=== PATIENT | male | born 1975 | race Caucasian/White ===

== ENCOUNTER 2020-10-31 21:25 | Inpatient (IN) ==
[2020-10-31 23:07] LABS: Basophils # (auto) 0.02 K/uL (0-0.2); Basophils % (auto) 0.3 %; Eosinophils # (auto) 0.13 K/uL (0-0.5); Eosinophils % (auto) 1.7 %; Hematocrit (blood only) 41.1 % (42-52); Hemoglobin 13.8 g/dL (14.0-18.0); Immature Granulocytes # (auto) 0.01 K/uL (0.00-0.02); Immature Granulocytes % (auto) 0.1 %; Lymphocytes # (auto) 2.33 K/uL (1.2-3.4); Mean Corpuscular Hemoglobin 29.6 pg (25-34); Mean Corpuscular Hgb Conc 33.6 g/dL (32-36); Mean Platelet Volume 9.3 fL (7.4-10.4); Monocytes # (auto) 0.42 K/uL (0.11-0.59); Monocytes % (auto) 5.4 %; Neutrophils # (auto) 4.86 K/uL (1.4-6.5); Neutrophils % (auto) 62.5 %; Platelet Count 310 K/uL (130-400); RDW Standard Deviation 41.6 fL (36.4-46.3); Red Blood Count 4.67 M/uL (4.7-6.1); White Blood Count 7.77 K/uL (4.8-10.8)
[2020-10-31] MEDS ORDERED: OPTIRAY 320 125ml IV ONE (23:14)
[2020-10-31 23:27] LABS: Alanine Aminotransferase 31 U/L (12-78); Aspartate Aminotransferase 27 U/L (15-37); BUN Creatinine Ratio 21.5 (10-20); Blood Urea Nitrogen 18 mg/dl (7-18); Calcium 9.3 mg/dl (8.5-10.1); Carbon Dioxide 26 mmol/L (21-32); Chloride 106 mmol/L (98-107); Creatinine Clr Calc Pharmacy 116.6 ml/min; Est GFR (African American) 122.6 ml/min; Est GFR (Non-African American) 105.7 ml/min; Glucose 116 mg/dl (70-99); Magnesium 2.5 mg/dl (1.8-2.4); Partial Thromboplastin Ratio 1.2; Partial Thromboplastin Time 31.6 Seconds (21.0-31.0); Potassium 3.8 mmol/L (3.5-5.1); Prothrombin Time 9.7 Seconds (9.0-12.0); Sodium 138 mmol/L (136-145)
[2020-10-31 23:32] LABS: Alkaline Phosphatase 90 U/L (45-117); Bilirubin,Total 0.2 mg/dl (0.2-1); Globulin 4.1 gm/dl (2.5-4.0); Total Protein 8.1 gm/dl (6.4-8.2); Troponin I < 0.015 ng/ml (0-0.045)
--- NOTE | 2020-10-31 23:42 | Emergency Department Note ---
Impression & Plan Cerebellar stroke, Occlusion of left vertebral artery ED Provider Note Provider: Scott Chiu MD DATE OF SERVICE: 10/31/2020 CHIEF COMPLAINT: MRI abnormality, vertigo HISTORY OF PRESENT ILLNESS: Patient is a 45-year-old gentleman developed in the middle of September sudden onset on September 26 of some head pain as well as dizziness. States has been having some issues with intermittent clumsiness of his left hand and at times a little bit of slurring of his speech. Was seen by his PCP as well as in the ER several weeks ago. Initially treated with meclizine and had negative CT scan and basic blood work several weeks ago. Had an outpatient MRI given persistence of symptoms and headaches. States symptoms have been somewhat waxing and waning at times. States he feels like he is staggering some with walking but denies any significant trauma. Denies issues with his right arm or leg. Does not normally take aspirin and has been using Tylenol intermittently for his headaches. Denies acute visual issues but states he has a history of strabismus and his eyes have not been the best over the past several years in any event. Had an MRI today and was called by radiology to come in for further evaluation. Ports and tingling at times in his left fingers but again clumsiness in the left hand. REVIEW OF SYSTEMS: A total of 10 review of systems was obtained and negative except as stated above in the HPI. PAST MEDICAL HISTORY: As noted above MEDICATIONS: Reviewed home medication list does not include antiplatelets or anticoagulants SOCIAL HISTORY: Was in the [facility], lives at home, former smoker PHYSICAL EXAM: GENERAL: alert and oriented in no acute distress on stretcher Head: normocephalic and atraumatic EYES: No injection, discharge or icterus. PERRL, EOMI. NECK: Trachea midline. Supple. ENT: Mucous membranes pink and moist. Pharynx without erythema or exudate. LUNGS: Airway patent. No retractions. Breath sounds clear with good air entry bilaterally. HEART: Regular rate and rhythm. No chest wall tenderness ABDOMEN: Soft and non-tender, without guarding or rebound. No hepatosplenomegaly or masses BACK: No midline tenderness, no SI joint tenderness. No bilateral flank tenderness. SKIN: Acyanotic, warm, dry, without rashes EXTREMITIES: Without swelling, tenderness or deformity NEUROLOGICAL: No aphasia. No facial droop and while he reports some slurred speech do not significantly appreciated on my exam in the room. Tongue is midline. No facial numbness appreciated. Intact strength in the left hand and arm but some left hand [id number] ataxia appreciated. Feels gross touch in the fingers but endorses some paresthesia here. EK bpm normal sinus rhythm. No PVC or PAC. No acute ST segment elevation or depression. QTC 424. CONTINUOUS CARDIAC MONITORING: was ordered and showed a heart rate of 70s to 80s bpm in normal sinus rhythm Patient's laboratory studies and imaging reviewed. Differential includes Infection, dehydration, metabolic abnormality, hypo/hyperglycemia, electrolyte disturbance, anemia, hypoxia, cardiac sources, intracerebral event, toxicologic, neurologic, as well as other pathologies. IMPRESSION/MEDICAL DECISION MAKING: Patient had MRI showing subacute occipital and cerebellar strokes. Seems to correlate with some of his symptoms of waxing waning symptoms are somewhat odd. Does have some left hand ataxia correlates with the cerebellar findings on the MRI. Patient has limited stroke risk factors. No significant family history of early stroke or blood clots reported by him. CTAs of the head and neck were completed to exclude vascular abnormality. Basic labs obtained without significant abnormalities. Given his subacute stroke findings discussed with him further evaluation here at the hospital and neurology consultation. Discussed with telestroke at [place] Dr. Shaikh who recommended aspirin which he was ordered. Patient is in agreement with the plan for further evaluation here. The hospitalist was contacted. DIAGNOSIS: Cerebellar stroke, occlusion left vertebral artery DISPOSITION: Hospitalist will evaluate Patient was agreeable with this plan. Preliminary Findings Only See Final Report For Complete Findings CTA HEAD: No arterial occlusion, high-grade stenosis, aneurysm, or dissection. Radiologist: Shelton Potts MD Study ready at 23:27 and initial results transmitted at 23:36 Preliminary Findings Only See Final Report For Complete Findings CT HEAD: No acute intracranial hemorrhage, hydrocephalus, edema, or mass effect. Radiologist: Shelton Potts MD Study ready at 23:27 and initial results transmitted at 23:33 Preliminary Findings Only See Final Report For Complete Findings CTA NECK: Occluded left vertebral artery with reconstitution of flow in the V3 segment. This is age indeterminate, potentially acute. Differential of dissection versus atheromatous disease as the etiology of the occlusion. Remainder of the cervical vasculature is widely patent. Radiologist: Shelton Potts MD Study ready at 23:31 and initial results transmitted at 23:41 Past Med/Surg History Medical History (Updated 10/31/20 @ 23:52 by Scott Chiu M.D.) Benign paroxysmal positional vertigo Social History (Updated 10/13/20 @ 00:44 by Krystal San MD) Smoking Status: Never smoker Preferred Language: Guatemalan marital status: Current Living Situation: Family current occupational status: employed Feels Safe at Home: Yes Allergies Allergies Allergy/AdvReac Type Severity Reaction Status Date / Time No Known Allergies Allergy Verified 10/31/20 23:03 Home Meds Home Medications Medication Instructions Recorded Confirmed acetaminophen [Tylenol Extra 1,000 mg PO DIRECTED PRN 10/31/20 10/31/20 Strength] meclizine 25 mg PO TID PRN 10/31/20 10/31/20 omeprazole 20 mg PO DAILY PRN 10/31/20 10/31/20 Results & Data (ED) Vital Signs Vital Signs - 24 hr 10/31/20 21:49 10/31/20 23:16 11/01/20 00:09 Temperature 36 C L Temperature Source Temporal Artery Scan Pulse Rate 85 Pulse Rate [Bilateral Apical] 77 83 Respiratory Rate 18 20 20 Blood Pressure 137/98 Blood Pressure [Left Arm] 153/114 H 150/112 H Blood Pressure Mean 111 Blood Pressure Mean [Left Arm] 127 124 Pulse Oximetry 97 98 98 Oxygen Delivery Method Room Air Room Air Room Air Sepsis Recent Fever Within 48 Hours No Sepsis New/Unexplained Change in Mental Status No Sepsis Action Taken by Nursing No Action Required Laboratory Data Result diagrams: 10/31/20 22:55 10/31/20 22:55 Lab Results 10/31/20 10/31/20 10/31/20 Range/Units 22:55 22:55 22:55 WBC 7.77 (4.8-10.8) K/uL RBC 4.67 L (4.7-6.1) M/uL Hgb 13.8 L (14.0-18.0) g/dL Hct 41.1 L (42-52) % MCV 88.0 (80-100) fL MCH 29.6 (25-34) pg MCHC 33.6 (32-36) g/dL RDW Std Deviation 41.6 (36.4-46.3) fL RDW Coeff of [place] 13.0 (11.5-14.5) % Plt Count 310 (130-400) K/uL MPV 9.3 (7.4-10.4) fL Immature Gran % (Auto) 0.1 % Neut % (Auto) 62.5 % Lymph % (Auto) 30.0 % [place] % (Auto) 5.4 % Eos % (Auto) 1.7 % Baso % (Auto) 0.3 % Neut # (Auto) 4.86 (1.4-6.5) K/uL Lymph # (Auto) 2.33 (1.2-3.4) K/uL [place] # (Auto) 0.42 (0.11-0.59) K/uL Eos # (Auto) 0.13 (0-0.5) K/uL Baso # (Auto) 0.02 (0-0.2) K/uL Immature Gran # (Auto) 0.01 (0.00-0.02) K/uL PT 9.7 (9.0-12.0) Seconds INR 1.0 (0.9-1.1) APTT 31.6 H (21.0-31.0) Seconds PTT Ratio 1.2 Sodium 138 (136-145) mmol/L Potassium 3.8 (3.5-5.1) mmol/L Chloride 106 (98-107) mmol/L Carbon Dioxide 26 (21-32) mmol/L Anion Gap 6.0 (3-11) BUN 18 (7-18) mg/dl Creatinine 0.84 (0.6-1.4) mg/dl Est Cr Clr Drug Dosing 116.6 ml/min Est GFR ( Amer) 122.6 ml/min Est GFR (Non-Af Amer) 105.7 ml/min BUN/Creatinine Ratio 21.5 H (10-20) Glucose 116 H (70-99) mg/dl Calcium 9.3 (8.5-10.1) mg/dl Magnesium 2.5 H (1.8-2.4) mg/dl Total Bilirubin 0.2 (0.2-1) mg/dl AST 27 (15-37) U/L ALT 31 (12-78) U/L Alkaline Phosphatase 90 (45-117) U/L Troponin I < 0.015 (0-0.045) ng/ml Total Protein 8.1 (6.4-8.2) gm/dl Albumin 4.0 (3.4-5.0) gm/dl Globulin 4.1 H (2.5-4.0) gm/dl Albumin/Globulin Ratio 1.0 (0.9-2) COVID-19 Eval Order SARS-CoV-2 (PCR) (Negative) 10/31/20 10/31/20 Range/Units 23:10 23:10 WBC (4.8-10.8) K/uL RBC (4.7-6.1) M/uL Hgb (14.0-18.0) g/dL Hct (42-52) % MCV (80-100) fL MCH (25-34) pg MCHC (32-36) g/dL RDW Std Deviation (36.4-46.3) fL RDW Coeff of [place] (11.5-14.5) % Plt Count (130-400) K/uL MPV (7.4-10.4) fL Immature Gran % (Auto) % Neut % (Auto) % Lymph % (Auto) % [place] % (Auto) % Eos % (Auto) % Baso % (Auto) % Neut # (Auto) (1.4-6.5) K/uL Lymph # (Auto) (1.2-3.4) K/uL [place] # (Auto) (0.11-0.59) K/uL Eos # (Auto) (0-0.5) K/uL Baso # (Auto) (0-0.2) K/uL Immature Gran # (Auto) (0.00-0.02) K/uL PT (9.0-12.0) Seconds INR (0.9-1.1) APTT (21.0-31.0) Seconds PTT Ratio Sodium (136-145) mmol/L Potassium (3.5-5.1) mmol/L Chloride (98-107) mmol/L Carbon Dioxide (21-32) mmol/L Anion Gap (3-11) BUN (7-18) mg/dl Creatinine (0.6-1.4) mg/dl Est Cr Clr Drug Dosing ml/min Est GFR ( Amer) ml/min Est GFR (Non-Af Amer) ml/min BUN/Creatinine Ratio (10-20) Glucose (70-99) mg/dl Calcium (8.5-10.1) mg/dl Magnesium (1.8-2.4) mg/dl Total Bilirubin (0.2-1) mg/dl AST (15-37) U/L ALT (12-78) U/L Alkaline Phosphatase (45-117) U/L Troponin I (0-0.045) ng/ml Total Protein (6.4-8.2) gm/dl Albumin (3.4-5.0) gm/dl Globulin (2.5-4.0) gm/dl Albumin/Globulin Ratio (0.9-2) COVID-19 Eval Order Covid19 at [facility] SARS-CoV-2 (PCR) NEGATIVE (Negative) Administered Medications Discontinued Medications Aspirin (Aspirin Chew 324 Mg) 324 mg PO NOW STA Stop: 11/01/20 00:00 Last Admin: 11/01/20 00:10 Dose: 324 mg Documented by: [id number] Ioversol (Optiray 320 125ml) 120 ml IV ONCE ONE Stop: 10/31/20 23:15 Last Admin: 10/31/20 23:15 Dose: 120 ml Documented by: [id number] Discharge Plan Visit Data Chief Complaint: Abnormal Labs/Diagnostic Testing Stated Complaint: HAD MRI EARLIER OF HEAD, NEEDED TO COME BACK ED Provider: Scott Chiu Discharge Problem: Cerebellar stroke, Occlusion of left vertebral artery Patient Disposition: Being Evaluated by Hospitalist Forms Stand Alone Forms: My [facility] [employer] Prescriptions Prescriptions: No Action acetaminophen [Tylenol Extra Strength] 500 mg Tablet 1,000 mg PO DIRECTED PRN (Reason: Pain) RF: 0 meclizine 25 mg tablet 25 mg PO TID PRN (Reason: Dizziness) RF: 0 omeprazole 20 mg Capsule,Delayed Release(Dr/Ec) 20 mg PO DAILY PRN (Reason: Heartburn) RF: 0 Referrals Referrals: Wilfredo Diallo MD [Primary Care Provider] -
[2020-10-31] MEDS ORDERED: ASPIRIN CHEW 324 MG PO STA (23:59)
--- NOTE | 2020-11-01 01:28 | History & Physical Report ---
Date of Service November 01, 2020 Assessment & Plan (1) Cerebellar stroke: Possible embolic source Stroke in the young Anemia, possibly chronic (patient remembers receiving iron supplementation for mild anemia when he was younger) Hyperglycemia rule out DM Past tobacco abuse Medical telemetry Neurochecks Aspirin, statin for secondary stroke prevention TTE for additional stroke work-up Hypercoagulability work-up given stroke in a young patient without classic risk factors for CVD Neurology consult Re: CVA Anemia work-up, transfuse PRBC if hemoglobin less than 8 and or for symptomatic anemia DVT prophylaxis. Lovenox subcu Full code Patient's requesting updates from providers. Ms. Berta Michael, contact #[phone]. Text document was generated using [employer] voice recognition software. It may contain grammatical or spelling errors. Kindly contact undersigned for clarification of any documentation item in question. History of Present Illness Chief Complaint: Abnormal MRI Primary Care Provider: Wilfredo Diallo MD History obtained from patient and records. Medical history significant for past tobacco abuse. 6 months history of intermittent dull posterior headache symptoms. Last month, patient noted vertigo symptoms described as spinning as if his being pulled on the left side. Attack coincided a few days after receiving second dose of COVID-19 vaccine ([id number]). No fever, no chills, no chest pain no S OB. Patient seen at PCPs office. Symptoms attributed to possible BPPV. Patient prescribed meclizine. Patient consulted ER 3 weeks ago due to worsening vertigo symptoms associated with left arm tingling. CT head did not show any acute intracranial abnormality. Patient symptoms attributed to BPPV. Patient prescribed prednisone course and meclizine. Patient PCP requested for a Brain MRI given persistent symptoms associated with some speech trouble on office follow-up 2 weeks ago. No alarming visual changes as per patient. Abnormal outpatient brain MRI done at [facility] yesterday. 1. There are foci of patchy signal abnormality identified in the superior left cerebellar hemisphere as above with associated abnormal postcontrast enhancement. This likely represents subacute ischemia. A repeat MRI of the brain in several weeks time is recommended for reassessment. Based on the locations, CT angiogram of the head and neck is recommended to assess the posterior circulation. 2. There are 2 additional tiny foci of restricted diffusion within the left posterior occipital cortex and the left cerebellar hemisphere which likely represent tiny acute to subacute infarcts. 3. No additional foci of acute ischemia are identified. 4. There is no evidence of hemorrhage or mass effect. Patient requested by providers to go to [facility] ER for evaluation. Patient given Aspirin at the ER following ED provider conversation with [facility] stroke neurologist. Medical History as above Surgical History : None Family History : COPD, seizure disorder, hypertension, trigeminal neuralgia Personal/Social history : Past tobacco abuse, no EtOH intake, [employer] employee Allergies Allergy/AdvReac Type Severity Reaction Status Date / Time No Known Allergies Allergy Verified 10/31/20 23:03 Home Medications Medication Instructions Recorded Confirmed Type acetaminophen [Tylenol Extra 1,000 mg PO DIRECTED PRN 10/31/20 10/31/20 History Strength] meclizine 25 mg PO TID PRN 10/31/20 10/31/20 History omeprazole 20 mg PO DAILY PRN 10/31/20 10/31/20 History Past Med/Surg History Medical History (Updated 10/31/20 @ 23:52 by Scott Chiu M.D.) Benign paroxysmal positional vertigo Social History (Updated 10/13/20 @ 00:44 by Krystal San MD) Smoking Status: Former smoker Smoking End Date: 2010; Hx Alcohol Use: Yes Alcohol type: beer Hx Substance Use: No Preferred Language: Wolof Communication Ability: Effective Fitness Sales Consultant Required: No Beliefs That Will Affect Care: None marital status: Current Living Situation: Spouse Current Living Situation Comment: spouse and children current occupational status: employed Other Information That Helps Us Care for You: No Feels Safe at Home: Yes Safety Concerns: Feels Safe At This Time Assistive Devices: Glasses Review of Systems Review of Systems: As per HPI, all 10 systems reviewed, all other ROS negative Physical Exam Physical Exam: GENERAL: Comfortable, pleasant, no respiratory distress SKIN: Normal color, warm HEENT: Bespectacled, Let[place] palpebral conjunctivae, no ptosis, moist buccal mucosa NECK : Supple, no tenderness CHEST : CTA, no tenderness HEART : RRR, no obvious murmurs ABDOMEN: No distention, nontender EXTREMITIES : No LE swelling/tenderness, no other conspicuous deformities noted NEUROLOGIC : Coherent, no facial asymmetry, dysmetria left, no other gross focality Results & Data Results & Data ([facility]) Vital Signs (Past 12 Hours) Vital Signs Temp Pulse Pulse Resp BP BP Pulse Ox 11/01/20 01:16 68 20 129/97 98 11/01/20 00:09 83 20 150/112 H 98 10/31/20 23:16 77 20 153/114 H 98 10/31/20 21:49 36 C L 85 18 137/98 97 Laboratory Results Laboratory Results WBC 7.77 K/uL (4.8-10.8) 10/31/20 22:55 RBC 4.67 M/uL (4.7-6.1) L 10/31/20 22:55 Hgb 13.8 g/dL (14.0-18.0) L 10/31/20 22:55 Hct 41.1 % (42-52) L 10/31/20 22:55 MCV 88.0 fL (80-100) 10/31/20 22:55 MCH 29.6 pg (25-34) 10/31/20 22:55 MCHC 33.6 g/dL (32-36) 10/31/20 22:55 RDW Std Deviation 41.6 fL (36.4-46.3) 10/31/20 22:55 RDW Coeff of [place] 13.0 % (11.5-14.5) 10/31/20 22:55 Plt Count 310 K/uL (130-400) 10/31/20 22:55 MPV 9.3 fL (7.4-10.4) 10/31/20 22:55 Immature Gran % (Auto) 0.1 % 10/31/20 22:55 Neut % (Auto) 62.5 % 10/31/20 22:55 Lymph % (Auto) 30.0 % 10/31/20 22:55 [place] % (Auto) 5.4 % 10/31/20 22:55 Eos % (Auto) 1.7 % 10/31/20 22:55 Baso % (Auto) 0.3 % 10/31/20 22:55 Neut # (Auto) 4.86 K/uL (1.4-6.5) 10/31/20 22:55 Lymph # (Auto) 2.33 K/uL (1.2-3.4) 10/31/20 22:55 [place] # (Auto) 0.42 K/uL (0.11-0.59) 10/31/20 22:55 Eos # (Auto) 0.13 K/uL (0-0.5) 10/31/20 22:55 Baso # (Auto) 0.02 K/uL (0-0.2) 10/31/20 22:55 Immature Gran # (Auto) 0.01 K/uL (0.00-0.02) 10/31/20 22:55 PT 9.7 Seconds (9.0-12.0) 10/31/20 22:55 INR 1.0 (0.9-1.1) 10/31/20 22:55 APTT 31.6 Seconds (21.0-31.0) H 10/31/20 22:55 PTT Ratio 1.2 10/31/20 22:55 Sodium 138 mmol/L (136-145) 10/31/20 22:55 Potassium 3.8 mmol/L (3.5-5.1) 10/31/20 22:55 Chloride 106 mmol/L (98-107) 10/31/20 22:55 Carbon Dioxide 26 mmol/L (21-32) 10/31/20 22:55 Anion Gap 6.0 (3-11) 10/31/20 22:55 BUN 18 mg/dl (7-18) 10/31/20 22:55 Creatinine 0.84 mg/dl (0.6-1.4) 10/31/20 22:55 Est Cr Clr Drug Dosing 116.6 ml/min 10/31/20 22:55 Est GFR ( Amer) 122.6 ml/min 10/31/20 22:55 Est GFR (Non-Af Amer) 105.7 ml/min 10/31/20 22:55 BUN/Creatinine Ratio 21.5 (10-20) H 10/31/20 22:55 Glucose 116 mg/dl (70-99) H 10/31/20 22:55 Calcium 9.3 mg/dl (8.5-10.1) 10/31/20 22:55 Magnesium 2.5 mg/dl (1.8-2.4) H 10/31/20 22:55 Total Bilirubin 0.2 mg/dl (0.2-1) 10/31/20 22:55 AST 27 U/L (15-37) 10/31/20 22:55 ALT 31 U/L (12-78) 10/31/20 22:55 Alkaline Phosphatase 90 U/L (45-117) 10/31/20 22:55 Troponin I < 0.015 ng/ml (0-0.045) 10/31/20 22:55 Total Protein 8.1 gm/dl (6.4-8.2) 10/31/20 22:55 Albumin 4.0 gm/dl (3.4-5.0) 10/31/20 22:55 Globulin 4.1 gm/dl (2.5-4.0) H 10/31/20 22:55 Albumin/Globulin Ratio 1.0 (0.9-2) 10/31/20 22:55 COVID-19 Eval Order Covid19 at [facility] 10/31/20 23:10 SARS-CoV-2 (PCR) NEGATIVE (Negative) 10/31/20 23:[address] head initial read: No acute intracranial hemorrhage, hydrocephalus, edema or mass-effect. CTA head initial read: No arterial occlusion, high-grade stenosis, aneurysm or dissection. CTA neck initial read: Occluded left vertebral artery with reconstitution of flow in the V3 segment. Age-indeterminate potentially acute. Differential of dissection versus atheromatous disease is etiology for occlusion. Remainder of cervical vasculature is widely patent. EKG as per my interpretation rate 75, NSR, normal axis, no ischemia
[2020-11-01] MEDS ORDERED: LORazepam 0.25 MG/0.5 ML VIAL IV PRN (02:39)
[2020-11-01] MEDS ORDERED: PROMETHAZINE HCL 12.5 MG in SODIUM CHLORIDE 0.9% 50 ML IV PRN (02:39)
[2020-11-01] MEDS ORDERED: PHARMACIST DISCHARGE MED REC CONSULT PRN (02:39)
[2020-11-01] MEDS ORDERED: NSS + 20MEQ KCL 20 MEQ/1,000 ML BAG IV ONE (02:39)
[2020-11-01] MEDS ORDERED: PANTOprazole 40 MG TAB PO PRN (02:39)
[2020-11-01 06:23] LABS: Basophils # (auto) 0.02 K/uL (0-0.2); Basophils % (auto) 0.3 %; Eosinophils # (auto) 0.17 K/uL (0-0.5); Eosinophils % (auto) 2.4 %; Hematocrit (blood only) 39.8 % (42-52); Hemoglobin 13.1 g/dL (14.0-18.0); Mean Corpuscular Hgb Conc 32.9 g/dL (32-36); Mean Corpuscular Volume 88.2 fL (80-100); Mean Platelet Volume 9.4 fL (7.4-10.4); Monocytes # (auto) 0.51 K/uL (0.11-0.59); Monocytes % (auto) 7.2 %; Neutrophils # (auto) 3.71 K/uL (1.4-6.5); Neutrophils % (auto) 52.1 %; Platelet Count 294 K/uL (130-400); RDW Standard Deviation 41.8 fL (36.4-46.3); Red Blood Count 4.51 M/uL (4.7-6.1); White Blood Count 7.11 K/uL (4.8-10.8)
[2020-11-01 06:28] LABS: Estimated Average Glucose 114 mg/dl; Hemoglobin A1C 5.6 % (4.5-5.6)
[2020-11-01 06:54] LABS: BUN Creatinine Ratio 19.9 (10-20); Calcium 9.3 mg/dl (8.5-10.1); Creatinine Clr Calc Pharmacy 116.9 ml/min; Est GFR (African American) 122.6 ml/min; Est GFR (Non-African American) 105.7 ml/min; Potassium 3.8 mmol/L (3.5-5.1)
--- NOTE | 2020-11-01 08:08 | CT Scan Report ---
CT angio head w con CLINICAL HISTORY: Stroke Like Symptoms TECHNIQUE: CT angiography of the head was performed in a dynamic helical fashion during intravenous a dministration of 120 cc of Optiray. MIP imaging was performed. A dose lowering technique was utilized adhering to the principles of ALARA. CT DOSE: COMPARISON STUDY: No previous studies for comparison. FINDINGS: There are no lesion suspicious for aneurysm. There are no major intracranial branch occlusi ons. The dural venous sinuses appear patent. IMPRESSION: 1. Unremarkable CT angiography of the brain. ACT 112: Negative or not required by law. Electronically signed by: Nathan Taveras M.D. 11/01/2020 8:07 AM
[2020-11-01 08:30] LABS: Ferritin 173.3 ng/ml (8-388)
[2020-11-01 08:31] LABS: Reticulocyte % 0.8 % (0.5-2.0); Reticulocytes # 0.03 10^6/uL (0.02-0.10)
[2020-11-01] MEDS: ENOXAPARIN INJ 40 MG/0.4 ML SYR SQ SCH (08:53)
[2020-11-01] MEDS: ATORVASTATIN 40 MG TAB PO SCH (08:53)
[2020-11-01 09:00] LABS: Folate (Folic Acid) 18.7 ng/ml (>5.38)
--- NOTE | 2020-11-01 09:34 | CT Scan Report ---
CT head/brain wo con CLINICAL HISTORY: Stroke Like Symptoms COMPARISON STUDY: October 11, 2020 TECHNIQUE: Axial CT of the brain is performed from the vertex to the skull base. IV contrast was not administered for this examination. A dose lowering technique was utilized adhering to the principles of ALARA. CT DOSE: FINDINGS: No intra or extra-axial mass lesions are visualized. There is no CT evidence of acute cortical infarc tion. There is no evidence of midline shift. There is no acute hemorrhage. No acute depressed calvar ial fractures are visualized. There are patchy white matter hypodensities likely on a small vessel basis. There is no evidence of pathologic ventricular dilatation. There is no evidence of acute sinusitis IMPRESSION: No acute intracranial hemorrhage, no midline shift or space occupying lesions. ACT 112: Negative or not required by law. The above report was generated using voice recognition software. It may contain grammatical, syntax o r spelling errors. Electronically signed by: Jia Bailey DO 11/01/2020 9:32 AM
--- NOTE | 2020-11-01 10:23 | CT Scan Report ---
CT angio neck with con CLINICAL HISTORY: Stroke Like Symptoms COMPARISON STUDY: No previous studies for comparison. TECHNIQUE: CT angiography was performed from the aortic arch to the skull base. MIP imaging was perfo rmed. The patient was scanned in a dynamic helical fashion during intravenous administration of 120 c c of Optiray. A dose lowering technique was utilized adhering to the principles of ALARA. CT DOSE: 1136.23 mGy.cm Technique: CT angiogram of the carotid and vertebral arteries was obtained using intravenous contrast and 3-D reconstruction. NASCET criteria was utilized. Findings: The right carotid revealed no evidence of aneurysm and no evidence of dissection. There is no evidenc e of hemodynamic significant stenosis. The left carotid revealed no evidence of hemodynamic significant stenosis. There is no evidence of an eurysm. There is no evidence of dissection. Right predominant vertebral circulation. Right vertebral artery is patent. No evidence of blood flow is seen within proximal artery of the left vertebral artery. Faint reconsti tuted flow is seen within distal portion of V3 and V4 segments which is small in caliber. IMPRESSION: 1. Occlusion of the most of the proximal and mid aspect of the left vertebral artery with slightly r econstituted flow within distal V3 and V4 segments and might represent acute process. 2. Bilateral carotid and right vertebral artery are patent. ACT 112: Negative or not required by law. The above report was generated using voice recognition software. It may contain grammatical, syntax o r spelling errors. Electronically signed by: Jia Bailey DO 11/01/2020 10:21 AM
[2020-11-01] MEDS: ACETAMINOPHEN 325 MG TAB PO PRN ×2 (14:58→20:24)
--- NOTE | 2020-11-01 15:16 | Electrocardiogram Report ---
Test Reason : Blood Pressure : / mmHG Vent. Rate : 074 BPM Atrial Rate : 074 BPM P-R Int : 138 ms QRS Dur : 078 ms QT Int : 382 ms P-R-T Axes : 051 025 025 degrees QTc Int : 424 ms Poor data quality, interpretation may be adversely affected Normal sinus rhythm Normal ECG When compared with ECG of 11-OCT-2020 14:17, No significant change was found Confirmed by Boy Mariscal ([id number]) on 11/01/2020 3:16:43 PM Referred By: Wilfredo Diallo Confirmed By:Boy Mariscal
--- NOTE | 2020-11-01 17:43 | Consultation Report ---
DATE OF CONSULTATION: 11/01/2020 REASON FOR CONSULTATION: Posterior circulation stroke. HISTORY OF PRESENT ILLNESS: The patient is a 45-year-old right-handed male with a history of reflux. On this background, approximately 09/24, he received the second of his two COVID vaccinations, Pfiz er. He felt mildly fatigued, but within a day or so, he suddenly felt pulled to the left. The sympt om was accompanied by vomiting, no rafael vertigo and was fairly continuous for 24 hours. His symptom s persisted for several days, about 5 days, and he felt increasingly pushed to the left. Thereafter, he felt near to normal, but with some persistence of symptoms. This was treated as if it was BPPV a nd the patient was given Antivert. About 11 days into the onset of these persistent symptoms, the chari estes noted sudden tingling from the left wrist down. That has persisted. That prompted him to go t o the Emergency Room where a CT of the head noncontrast was read as normal and he was given prednison e. Approximately 10/13, he developed dysarthria, which was mild and persistent. He sought the medic al evaluation of primary care who ordered an MRI of the brain, which was performed last evening. In the interim, he has residual mild difficulty with speech, veering to the left and tingling in his lef t hand and incoordination of his left hand. None of his symptoms have been new for about 10 or so da ys. This has also been accompanied by some occipital headache, perhaps as long as several months, te nding to be right occipital and right hemicranial; however, the headache has been left-sided as well more recently; generally it is nonthrobbing, but can be throbbing as well. The patient has no history of migraine. He has not had any head and neck injury, chiropractic manipu lation of the neck or sudden turning of his head. He has not had any chest pain, palpitations or ilia rtness of breath. He has not otherwise been ill. None of his medicines are new or changed in dose. He took an [id number]-[id number] medication for reflux, but otherwise took no medications. He has no history of NC, stroke, PE, DVT, cancer, rheumatic fever or murmur. His MRI was performed l ast evening at this facility. I reviewed the images and it reveals foci of patchy signal abnormality identified in the left superior cerebellar hemisphere as above with associated abnormal postcontrast enhancement, likely representing subacute ischemia. Two additional tiny foci of restricted diffusio n in the left posterior occipital cortex and left cerebellar hemisphere, likely representing tiny acu te to subacute infarctions. No additional acute ischemia is identified. No evidence of hemorrhage o r mass effect. CTA of the head and neck shows an unremarkable CTA of the brain, but evidence of occl usion of the most proximal and mid aspect of the left vertebral artery with slight reconstructed flow within the distal V3 and V4 and "might represent an acute process." Bilateral carotid and right mirna tebral artery are patent. The patient's electrocardiogram revealed sinus rhythm, normal EKG. Echoca rdiogram, left ventricular systolic function is normal, EF 55%-60%, trace mitral regurgitation. Puls ed wave TDI of the anterior and posterior mitral annulus demonstrates normal LV relaxation. Injectio n of contrast documented no intraatrial shunt. There is borderline concentric left ventricular hyper trophy. The atria are of normal size. Great vessels are unremarkable. White count 7.7, H and H 13. 8/41.1, platelet count 310. PT 9.7, PTT 31.6 with the upper limit of normal being 31. Hypercoagulab le state workup pending. Blood sugar, nonfasting 116. Total cholesterol 211, LDL 140, HDL 49. COVID -19 negative. PAST MEDICAL HISTORY: As above. PAST SURGICAL HISTORY: Strabismus surgery. SOCIAL HISTORY: Former smoker, does not drink alcohol, is retired from the and works at [employer]. FAMILY HISTORY: Mother, hypertension, reflux. Father, COPD, coronary artery disease. Siblings and c amanda are well. Maternal grandmother had trigeminal neuralgia. No family history of early vascula r disease, stroke, NC, or DVT. ALLERGIES: No allergies are noted. HOME MEDICATIONS: Tylenol, meclizine and omeprazole. PHYSICAL EXAMINATION: VITAL SIGNS: Current blood pressure 136/85, 65, 36.7. NEUROLOGIC: The patient is awake and alert. Speech is mildly dysarthric. There is no aphasia. Sergio guage is unremarkable. There are no carotid or vertebral bruits. Radial pulses are palpably symmetr ic. No heart murmur is appreciable. Heart is regular rate and rhythm. No temporal tenderness or oc cipital tenderness is noted. Pupils are equal, round and reactive to light. Optic nerves are grossl y normal. There are normal visual garcia, motility reveals nystagmus on left lateral gaze. Normal f acial symmetry. Tongue is midline. Uvula elevates symmetrically. Motor: 5/5. No drift. Minimall y reduced left rapid alternating movements. Qtcxap-my-kywt is marginally dystaxic on the left and th ere is mild dysdiadochokinesia in the left upper extremity. Qmsm-ia-zrel appears unremarkable. Sens ation is intact to light touch, temperature, and vibration. Reflexes are symmetric. Toes are downgo ing. Gait is unremarkable. The patient cannot tandem, and Romberg is positive. 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 PLAN: Dual antiplatelet therapy with aspirin and Plavix for 21 days and then aspirin monotherapy. B egin a statin, goal LDL 70 or less. Repeat MRI of the brain in 1 month to evaluate for resolving enh ancement in the left medial cerebellar hemisphere. Hypercoagulable state workup pending. Check sed rate, AUDREY. Although this is not likely cardioemboli c, recommend a Zio patch. Activity bustillo, I would avoid forced flexion and extension of the head and neck. The patient should a void chiropractic manipulation of the neck. For the patient's headache, he can start with riboflavin 400 mg once a day and magnesium 400 mg once a day. If this is ineffective, we could start him on low-dose gabapentin 100 mg once a day and then increasing to b.i.d. after about 5 days. We spoke about potential side effects in advance of its use . Recommend repeat CTA of head and neck in 3-6 months. The patient should see me in followup post-d ischarge. He will need outpatient physical therapy. Job ID: [id number]
--- NOTE | 2020-11-01 18:10 | Communication Note ---
Date of Service: November 01, 2020 Patient was seen and examined Lying in bed with no distress Denies any chest pain, palpitation, dizziness, shortness of breath. Exam General- No acute distress Head- atraumatic Eyes- PERRL, EOMI, +nystagmus ENT- oropharynx clear Neck- supple, no JVD Lungs- clear to auscultation Heart- regular rhythm; no murmur Abdomen- normal bowel sounds, soft, nontender Extremities- no calf tenderness Neuro- alert, oriented x 3; PERRL, EOMI; no facial palsy; no dysarthria Skin- warm & dry A/P Acute subacute infarct Outpatient MRI showed foci of patchy signal abnormality identified in the superior left cerebellar hemisphere as above with associated abnormal postcontrast enhancement. This likely represents subacute ischemia. 2 additional tiny foci of restricted diffusion within the left posterior occipital cortex and the left cerebellar hemisphere which likely represent tiny acute to subacute infarcts. Echo showed left ventricular systolic function is normal. Ejection fraction 55 to 60%. No evidence of interatrial shunt Neuro on board recommended dual antiplatelet therapy with Plavix and aspirin for 21 days, then aspirin alone. Continue statin therapy. Zio patch outpatient to be arranged. Hypercoagulable state workup pending. will need a repeat MRI of the brain in 1 month to evaluate for resolving enhancement in the left medial cerebellar hemisphere. Continue PT/OT eval Continue monitor in telemetry Follow up with neurology outpatient Occlusion of the left vertebral artery. Patient was advised to avoid chiropractic manipulation of the neck Will need a repeat CTA of head and neck in 3-6 months. Headache Annual recommended riboflavin 400 mg once a day and magnesium 400 mg daily If no relief consider to start on gabapentin 100 mg twice Disposition Possible discharge tomorrow
[2020-11-01] MEDS: CLOPIDOGREL BISULFATE 75 MG TAB PO SCH (18:14)
[2020-11-02 07:13] LABS: Hematocrit (blood only) 40.3 % (42-52); Hemoglobin 13.4 g/dL (14.0-18.0); Mean Corpuscular Hemoglobin 29.6 pg (25-34); Mean Corpuscular Hgb Conc 33.3 g/dL (32-36); Mean Platelet Volume 9.1 fL (7.4-10.4); Platelet Count 271 K/uL (130-400); RDW Coefficient of Variation 12.9 % (11.5-14.5); RDW Standard Deviation 42.1 fL (36.4-46.3); Red Blood Count 4.53 M/uL (4.7-6.1); White Blood Count 5.96 K/uL (4.8-10.8)
[2020-11-02 07:46] LABS: BUN Creatinine Ratio 18.2 (10-20); Calcium 9.3 mg/dl (8.5-10.1); Creatinine Clr Calc Pharmacy 119.6 ml/min; Est GFR (African American) 123.8 ml/min; Est GFR (Non-African American) 106.8 ml/min; Magnesium 2.4 mg/dl (1.8-2.4); Phosphorus 3.7 mg/dl (2.5-4.9); Potassium 4.3 mmol/L (3.5-5.1)
[2020-11-02] MEDS: CLOPIDOGREL BISULFATE 75 MG TAB PO SCH (08:01)
[2020-11-02] MEDS: ATORVASTATIN 40 MG TAB PO SCH (08:01)
[2020-11-02] MEDS: ENOXAPARIN INJ 40 MG/0.4 ML SYR SQ SCH (08:01)
[2020-11-02] MEDS ORDERED: ASPIRIN 81 MG ECTAB PO SCH (09:00)
[2020-11-02] MEDS ORDERED: MAGNESIUM OXIDE 400 MG TAB PO SCH (09:00)
--- NOTE | 2020-11-02 09:26 | Hospitalist Progress Note ---
Date of Service November 02, 2020 Assessment & Plan (1) Cerebellar stroke: Possible embolic source Stroke in the young Acute subacute infarct Outpatient MRI showed foci of patchy signal abnormality identified in the superior left cerebellar hemisphere as above with associated abnormal postcont rast enhancement. This likely represents subacute ischemia. 2 additional tiny foci of restricted diffusion within the left posterior occipital cortex and the left cerebellar hemisphere which likely represent tiny acute to subacute infarcts. Echo showed left ventricular systolic function is normal. Ejection fraction 55 to 60%. No evidence of interatrial shunt Neurology consulted - recommended dual antiplatelet therapy with Plavix and aspirin for 21 days, then aspirin alone. Continue statin therapy. Zio patch outpatient to be arranged. Hypercoagulable state workup pending. will need a repeat MRI of the brain in 1 month to evaluate for resolving enhancement in the left medial cerebellar hemisphere. Follow up with neurology PT/OT eval -recommend outpatient PT, Rx for outpatient PT eval and treat provided Continue monitor in telemetry - sinus rhythm on tele Follow up with neurology outpatient Occlusion of the left vertebral artery. Patient was advised to avoid forceful extension, flexion of the neck, chiropractic manipulation of the neck Will need a repeat CTA of head and neck in 3-6 months. Headache Neurology recommended riboflavin 400 mg once a day and magnesium 400 mg daily If no relief consider to start on gabapentin 100 mg daily, then twice a day about 5 days later Disposition Plan to discharge home Full code Admission and Anticipated Discharge Date Admission Date: November 01, 2020 Subjective Patient seen in follow-up of CVA, cerebellar stroke, occlusion of left vertebral artery No acute events overnight Currently patient is sitting up in bed, in no acute distress No fevers, chills, chest pain, shortness of breath Telemetry reviewed by me, patient in sinus rhythm Patient seen by neurology yesterday, recommendations given Rx for outpatient PT evaluation treatment provided for the patient Discussed medications and follow-ups patient in agreement with the plan Review of Systems Review of Systems: All systems reviewed & are unremarkable except as noted in HPI & below Constitutional: no fever and no chills Respiratory: no cough and no dyspnea Cardiovascular: no chest pain and no palpitations Gastrointestinal: no abdominal pain and no vomiting Physical Exam Physical Exam: General- WD, WN, No acute distress Head- atraumatic Eyes- PERRL, EOMI ENT- oropharynx clear Neck- supple, no JVD Lungs- clear to auscultation b/l Heart- regular rhythm; no murmur Abdomen- normal bowel sounds, soft, nontender Extremities- no calf tenderness, moves extremities Neuro- alert, oriented x 3; PERRL, EOMI; no facial palsy; no dysarthria Skin- warm & dry Results & Data Results & Data ([facility]) Vital Signs (Past 12 Hours) Vital Signs Temp Pulse Pulse Resp BP Pulse Ox 11/02/20 07:20 36.6 C 66 17 137/92 97 11/02/20 04:05 36.6 C 56 L 16 134/80 98 11/02/20 00:03 36.6 C 57 L 18 129/83 97 11/01/20 23:34 66 Laboratory Results 11/02/20 11/02/20 11/02/20 Range/Units 06:49 06:49 06:49 WBC 5.96 (4.8-10.8) K/uL RBC 4.53 L (4.7-6.1) M/uL Hgb 13.4 L (14.0-18.0) g/dL Hct 40.3 L (42-52) % MCV 89.0 (80-100) fL MCH 29.6 (25-34) pg MCHC 33.3 (32-36) g/dL RDW Std Deviation 42.1 (36.4-46.3) fL RDW Coeff of [place] 12.9 (11.5-14.5) % Plt Count 271 (130-400) K/uL MPV 9.1 (7.4-10.4) fL ESR (0-15) mm/hr Sodium 137 (136-145) mmol/L Potassium 4.3 (3.5-5.1) mmol/L Chloride 107 (98-107) mmol/L Carbon Dioxide 28 (21-32) mmol/L Anion Gap 2.0 L (3-11) BUN 15 (7-18) mg/dl Creatinine 0.82 (0.6-1.4) mg/dl Est Cr Clr Drug Dosing 119.6 ml/min Est GFR ( Amer) 123.8 ml/min Est GFR (Non-Af Amer) 106.8 ml/min BUN/Creatinine Ratio 18.2 (10-20) Glucose 83 (70-99) mg/dl Calcium 9.3 (8.5-10.1) mg/dl Phosphorus 3.7 (2.5-4.9) mg/dl Magnesium 2.4 (1.8-2.4) mg/dl AUDREY Screen Pending 11/01/20 Range/Units 17:08 WBC (4.8-10.8) K/uL RBC (4.7-6.1) M/uL Hgb (14.0-18.0) g/dL Hct (42-52) % MCV (80-100) fL MCH (25-34) pg MCHC (32-36) g/dL RDW Std Deviation (36.4-46.3) fL RDW Coeff of [place] (11.5-14.5) % Plt Count (130-400) K/uL MPV (7.4-10.4) fL ESR 31 H (0-15) mm/hr Sodium (136-145) mmol/L Potassium (3.5-5.1) mmol/L Chloride (98-107) mmol/L Carbon Dioxide (21-32) mmol/L Anion Gap (3-11) BUN (7-18) mg/dl Creatinine (0.6-1.4) mg/dl Est Cr Clr Drug Dosing ml/min Est GFR ( Amer) ml/min Est GFR (Non-Af Amer) ml/min BUN/Creatinine Ratio (10-20) Glucose (70-99) mg/dl Calcium (8.5-10.1) mg/dl Phosphorus (2.5-4.9) mg/dl Magnesium (1.8-2.4) mg/dl AUDREY Screen Medications Administered Current Inpatient Medications Acetaminophen (Acetaminophen 325 Mg Tab) 650 mg PO Q4H PRN PRN Reason: Pain or Fever Stop: 12/01/20 02:38 Last Admin: 11/01/20 20:24 Dose: 650 mg Documented by: Aspirin (Aspirin 81 Mg Ectab) 81 mg PO [facility] Stop: 12/02/20 08:59 Last Admin: 11/02/20 08:01 Dose: 81 mg Documented by: Atorvastatin Calcium (Atorvastatin 40 Mg Tab) 40 mg PO [facility] Stop: 12/01/20 08:59 Last Admin: 11/02/20 08:01 Dose: 40 mg Documented by: Clopidogrel Bisulfate (Clopidogrel Bisulfate 75 Mg Tab) 75 mg PO [facility] Stop: 12/01/20 17:29 Last Admin: 11/02/20 08:01 Dose: 75 mg Documented by: Enoxaparin Sodium (Enoxaparin Inj 40 Mg/0.4 Ml Syr) 40 mg SQ [facility] Stop: 12/01/20 08:59 Last Admin: 11/02/20 08:01 Dose: 40 mg Documented by: Promethazine HCl 12.5 mg/ (Sodium Chloride) 50.5 mls @ 202 mls/hr IV Q6H PRN PRN Reason: Nausea And Vomiting Stop: 12/01/20 02:38 Lorazepam (Ativan) 0.25 mg in 0.5 mls @ 0.5 mls/min IV Q4H PRN PRN Reason: Anxiety Stop: 12/01/20 02:38 Magnesium Oxide (Magnesium Oxide 400 Mg Tab) 400 mg PO [facility] Stop: 12/02/20 08:59 Last Admin: 11/02/20 08:00 Dose: 400 mg Documented by: Miscellaneous Information (Pharmacist Discharge Med Rec Consult) 1 ea N/A UD PRN PRN Reason: Consult Stop: 12/01/20 02:38 Pantoprazole Sodium (Pantoprazole 40 Mg Tab) 40 mg PO DAILY PRN PRN Reason: Heartburn Last Admin: 11/02/20 08:01 Dose: 40 mg Documented by:
[2020-11-02] MEDS ORDERED: STROKE PATIENT DISCHARGE STA (09:34)
--- NOTE | 2020-11-02 09:41 | Discharge Summary ---
Date of Service November 02, 2020 Admission HPI Per Admitting Provider History obtained from patient and records. Medical history significant for past tobacco abuse. 6 months history of intermittent dull posterior headache symptoms. Last month, patient noted vertigo symptoms described as spinning as if his being pulled on the left side. Attack coincided a few days after receiving second dose of COVID-19 vaccine ([facility]). No fever, no chills, no chest pain no S OB. Patient seen at PCPs office. Symptoms attributed to possible BPPV. Patient prescribed meclizine. Patient consulted ER 3 weeks ago due to worsening vertigo symptoms associated with left arm tingling. CT head did not show any acute intracranial abnormality. Patient symptoms attributed to BPPV. Patient prescribed prednisone course and meclizine. Patient PCP requested for a Brain MRI given persistent symptoms associated with some speech trouble on office follow-up 2 weeks ago. No alarming visual changes as per patient. Abnormal outpatient brain MRI done at [facility] yesterday. 1. There are foci of patchy signal abnormality identified in the superior left cerebellar hemisphere as above with associated abnormal postcontrast enhancement. This likely represents subacute ischemia. A repeat MRI of the brain in several weeks time is recommended for reassessment. Based on the locations, CT angiogram of the head and neck is recommended to assess the posterior circulation. 2. There are 2 additional tiny foci of restricted diffusion within the left posterior occipital cortex and the left cerebellar hemisphere which likely represent tiny acute to subacute infarcts. 3. No additional foci of acute ischemia are identified. 4. There is no evidence of hemorrhage or mass effect. Patient requested by providers to go to [facility] ER for evaluation. Patient given Aspirin at the ER following ED provider conversation with [facility] stroke neurologist. Medical History as above Surgical History : None Family History : COPD, seizure disorder, hypertension, trigeminal neuralgia Personal/Social history : Past tobacco abuse, no EtOH intake, [employer] employee Admission Exam Per Admitting Provider GENERAL: Comfortable, pleasant, no respiratory distress SKIN: Normal color, warm HEENT: Bespectacled, [place] palpebral conjunctivae, no ptosis, moist buccal mucosa NECK : Supple, no tenderness CHEST : CTA, no tenderness HEART : RRR, no obvious murmurs ABDOMEN: No distention, nontender EXTREMITIES : No LE swelling/tenderness, no other conspicuous deformities noted NEUROLOGIC : Coherent, no facial asymmetry, dysmetria left, no other gross focality Principal Diagnosis CVA -cerebellar stroke, vertebral artery occlusion Ambulatory dysfunction Discharge Exam General- WD, WN, No acute distress Head- atraumatic Eyes- PERRL, EOMI ENT- oropharynx clear Neck- supple, no JVD Lungs- clear to auscultation b/l Heart- regular rhythm; no murmur Abdomen- normal bowel sounds, soft, nontender Extremities- no calf tenderness, moves extremities Neuro- alert, oriented x 3; PERRL, EOMI; no facial palsy; no dysarthria Skin- warm & dry Discharge Data Allergies Allergy/AdvReac Type Severity Reaction Status Date / Time No Known Allergies Allergy Verified 10/31/20 23:03 Consultations 10/31/20 23:59 ED Decision to Admit Stat 11/01/20 02:39 Consult Neurology Routine Consult Neurology Routine Ordered Studies 10/31/20 22:46 CT angio head w con Stat IMPRESSION: 1. Unremarkable CT angiography of the brain. CT angio neck with con Stat IMPRESSION: 1. Occlusion of the most of the proximal and mid aspect of the left vertebral artery with slightly reconstituted flow within distal V3 and V4 segments and might represent acute process. 2. Bilateral carotid and right vertebral artery are patent. CT head/brain wo con Stat IMPRESSION: No acute intracranial hemorrhage, no midline shift or space occupying lesions. Hospital Course (1) Cerebellar stroke: Possible embolic source Stroke in the young Acute subacute infarct Outpatient MRI showed foci of patchy signal abnormality identified in the superior left cerebellar hemisphere as above with associated abnormal postcontrast enhancement. This likely represents subacute ischemia. 2 additional tiny foci of restricted diffusion within the left posterior occipital cortex and the left cerebellar hemisphere which likely represent tiny acute to subacute infarcts. Echo showed left ventricular systolic function is normal. Ejection fraction 55 to 60%. No evidence of interatrial shunt Neurology consulted - recommended dual antiplatelet therapy with Plavix and aspirin for 21 days, then aspirin alone. Continue statin therapy. Zio patch outpatient to be arranged. Hypercoagulable state workup pending. will need a repeat MRI of the brain in 1 month to evaluate for resolving enhancement in the left medial cerebellar hemisphere. Follow up with neurology PT/OT eval -recommend outpatient PT, Rx for outpatient PT eval and treat provided Continue monitor in telemetry - sinus rhythm on tele Follow up with neurology outpatient Occlusion of the left vertebral artery. Patient was advised to avoid forceful extension, flexion of the neck, chiropractic manipulation of the neck Will need a repeat CTA of head and neck in 3-6 months. Headache Neurology recommended riboflavin 400 mg once a day and magnesium 400 mg daily If no relief consider to start on gabapentin 100 mg daily, then twice a day about 5 days later Disposition Plan to discharge home - follow up w/ PCP and neurology Total Time Total Time Spent Total Time Spent (In Minutes): 40 Total Time Includes: Examination of the Patient, Discharge Planning, Medication Reconciliation and Communication With Other Providers Discharge Plan Discharge Items Patient Disposition: Home - Self-Care Reason For Visit: CVA Discharge Diagnosis: CVA -cerebellar stroke, vertebral artery occlusion Ambulatory dysfunction Activity: Per Instructions section Non-emergency contact: Primary Care Provider and Neurologist Call non-emergency contact if: you have any medication questions and your symptoms worsen Follow-up/Referrals: Wilfredo Diallo MD [Primary Care Provider] - (Date & Time 11/08/2020 10:20 AM Provider Kendy Tipton MD [facility] ) Diet: Regular Addtl Attending Provider Instructions: Follow-up with your primary care doctor, the appointment was scheduled for you for November 08. Take aspirin and Plavix for 21 days, then take aspirin indefinitely. Take atorvastatin daily as prescribed. For headache, take riboflavin, and magnesium daily as prescribed. You will need to follow-up with neurology, you will be contacted about the appointment. You will need MRI in 1 month, and CTA head and neck in 3 to 6 months, this will be arranged for you. Avoid any forceful extension or flexion of your neck, or any chiropractic manipulation of your neck. It is okay to drive as long as you do not feel dizzy. You should follow-up with physical therapy, prescription for physical therapy evaluation and treatment was provided for you. Pending Studies at Discharge: Yes Studies:: Hypercoagulable work-up Stand-Alone Forms: My SET, Smoking Cessation Medications and DC Order Prescriptions: New riboflavin (vitamin B2) 400 mg tablet 400 mg PO DAILY Qty: 30 RF: 0 clopidogrel 75 mg Tablet 75 mg PO QAM Qty: 20 RF: 0 atorvastatin 40 mg Tablet 40 mg PO QAM Qty: 30 RF: 0 aspirin 81 mg Tablet,Delayed Release (Dr/Ec) 81 mg PO QAM Qty: 30 RF: 0 magnesium oxide 400 mg (241.3 mg magnesium) Tablet 400 mg PO QAM Qty: 30 RF: 0 Continued acetaminophen [Tylenol Extra Strength] 500 mg Tablet 1,000 mg PO DIRECTED PRN (Reason: Pain) RF: 0 omeprazole 20 mg Capsule,Delayed Release(Dr/Ec) 20 mg PO DAILY PRN (Reason: Heartburn) RF: 0 Discontinued meclizine 25 mg tablet 25 mg PO TID PRN (Reason: Dizziness) RF: 0 Discharge Orders: Discharge Order (Routine); Ordered 11/02/20 Ordered By: Sloan Kramer Admission Data Admit Date/Time: 11/01/20 01:33 Attending Provider: Sloan Kramer Admit Provider: Santana Figueroa Primary Care Provider: Wilfredo Diallo Other Providers: Ashley Aranda ; Amor Phelps ; Ashley Connolly ; Agusto Wilcox ; Santana Figueroa ; Terrance Harris
--- NOTE | 2020-11-02 10:19 | Pharmacy Report ---
Pharmacist Stroke Counseling - Date of Service November 02, 2020 - Scope: Pharmacy has been consulted to provide medication discharge counseling for this patient admitted with ischemic stroke as per the Pharmacist Discharge Counseling for Stroke Patients Protocol. - Medications on Discharge: Home Medications Medication Instructions Recorded Confirmed acetaminophen [Tylenol Extra 1,000 mg PO DIRECTED PRN 10/31/20 10/31/20 Strength] omeprazole 20 mg PO DAILY PRN 10/31/20 10/31/20 New Rx's Medication Instructions Recorded aspirin 81 mg PO QAM #30 tab 11/01/20 atorvastatin 40 mg PO QAM #30 tab 11/01/20 clopidogrel 75 mg PO QAM #20 tab 11/01/20 magnesium oxide 400 mg PO QAM #30 tab 11/01/20 riboflavin (vitamin B2) 400 mg PO DAILY #30 tab 11/01/20 - Action: The above medications, specifically ones for stroke treatment/prophylaxis, have been reviewed in detail with the patient and/or patient desk representative(s) prior to discharge. This includes indication, common adverse reactions, drug interactions, and medication administration. Medication counseling has been employed using the teach-back method to ensure understanding. - Outcome: The patient and/or patient desk representative(s) have demonstrated understanding of the medications. Additional comments: Met with patient and his prior to discharge. Reviewed medication changes- specifically those to prevent stroke including Aspirin, Plavix, and Atorvastatin. Discussed how/when to take medications, what to do if a dose is missed, common drug interactions, possible side effects, and things to watch out for. Counseled patient to avoid omeprazole x 21 days while on Plavix. Pt stated that he actually prefers ranitidine to omeprazole and this would not be problem. Thank you for allowing pharmacy to be involved in the care of this patient. Please call [phone] with any additional questions
[2020-11-03 10:47] LABS: Anti Nuclear Antibody Screen NEGATIVE (NEGATIVE)
[2020-11-04 06:26] LABS: B2 Glycoprotein IgG <2.0 U/mL (<20.0); B2 Glycoprotein IgM 2.3 U/mL (<20.0); Protein S Functional(Activity) 103 % (70-150)
[2020-11-04 08:21] LABS: Anti Cardiolipin Ab IgG <2.0 GPL-U/mL; Anti Cardiolipin Ab IgM 2.5 MPL-U/mL; Anti-Thrombin III Activity 108 % normal (80-135); PTT LA Screen 47 sec (<=40)
[2020-11-04 13:39] LABS: Lupus Hex Phase (Rflxdonotord) Negative (Negative)
== END 2020-11-02 10:58 | disposition home or self-care (01) | DRG 66 ==
LOC: ED 21:25 → 2S 11-01 01:33 → SUATTDRO 11-01 01:33 → 2S 11-01 02:14